=== PATIENT | female | born 1945 | race American Indian/Alaskan Native ===

== ENCOUNTER 2016-07-08 13:31 | Observation (INO) | payer OTHER ==
[2016-07-08 13:36] VITALS: BMI 47.2
[2016-07-08] MEDS ORDERED: ASPIRIN 81 MG CHEWABLE TABLETS PO ONE (13:42)
--- NOTE | 2016-07-08 13:42 | PDOC ---
History of Present Illness - General History Source: Patient Exam Limitations: No Limitations <Lila Oscar - Last Filed: 07/08/16 16:46> - General History Source: Patient Exam Limitations: No Limitations <Sinai Krause - Last Filed: 07/09/16 21:37> - General Chief Complaint: Chest Pain Stated Complaint: CHEST PAIN Time Seen by Provider: 07/08/16 13:41 - History of Present Illness Initial Comments: 07/08/16 13:41 The patient is a 71-year-old woman, accompanied by her family, with a significant past medical history of hypertension, hypercholesterolemia and non- insulin dependent diabetes mellitus who presents to the emergency department via walk-in for further evaluation of chest pain for the past 3-4 days. As per patient, she reports experiencing intermittent mid-sternal nonradiating chest tightness with associated shortness of breath. She notes that physical activity with exertion, such as walking up the steps around her house, exacerbates her chest pain. She reports taking her inhaler to help alleviate her shortness of breath but states that this made it worse. Patient admits that her symptoms worsen yesterday as her chest pain began to be more constant. Today, her pain was more severe despite taking Tylenol, thus she presented to the ED. She denies fever, chills, cough, hemoptysis, diaphoresis, shortness of breath, headache. She denies jaw/ back pain lower extremity pain/swelling, calf tenderness/pain She denies recent travel, recent surgery, recent immobilization. Allergies: None Known Past Surgical History: Hysterectomy Social History: Never smoked. No EtOH and recreational drug use. Primary Care Physician: Dr. Vic Keen (Lila Oscar) Past History <Lila Oscar - Last Filed: 07/08/16 16:46> - Past Medical History Dialysis: Yes HTN: Yes Hypercholesterolemia: Yes - Psycho/Social/Smoking Cessation Hx Anxiety: No Suicidal Ideation: No Smoking History: Never smoked Have you smoked in the past 12 months: No Information on smoking cessation initiated: No Hx Alcohol Use: No Drug/Substance Use Hx: No Substance Use Type: None <Sinai Krause - Last Filed: 07/09/16 21:37> - Past Medical History Allergies/Adverse Reactions: Allergies Allergy/AdvReac Type Severity Reaction Status Date / Time No Known Allergies Allergy Verified 07/08/16 13:32 Home Medications: Ambulatory Orders Amlodipine Besylate 5 mg PO DAILY 07/08/16 Glipizide 5 mg PO DAILY 07/08/16 Insulin Glargine,Hum.rec.anlog [Lantus (nf)] 40 units SQ HS 07/08/16 Losartan/Hydrochlorothiazide [Losartan-Hctz 100-25 mg Tab] 1 each PO DAILY 07/08 Metformin HCl 500 mg PO DAILY 07/08/16 Simvastatin 40 mg PO HS 07/08/16 Review of Systems - Review of Systems Able to Perform ROS?: Yes <Lila Oscar - Last Filed: 07/08/16 16:46> <Sinai Krause - Last Filed: 07/09/16 21:37> - Review of Systems Comments:: 07/08/16 13:47 GENERAL/CONSTITUTIONAL: No: fever, chills, weakness, loss of appetite. HEAD, EYES, EARS, NOSE AND THROAT: No: change in vision, ear pain, discharge, sore throat, throat swelling. CARDIOVASCULAR: Yes: Chest Pain. No: lightheadedness, palpitations, syncope RESPIRATORY: Yes: Shortness of breath. No: cough, wheezing, hemoptysis, stridor. GASTROINTESTINAL: No: nausea, vomiting, abdominal cramping, diarrhea, rectal bleeding, constipation. GENITOURINARY: No: dysuria, hematuria, frequency, urgency, flank pain. MUSCULOSKELETAL: No: back pain, neck pain, joint pain, muscle swelling or pain SKIN AND BREASTS: No: lesions, pallor, rash or easy bruising. NEUROLOGIC: No: headache, vertigo, paresthesias, weakness ENDOCRINE: No: unexplained weight gain or loss HEMATOLOGIC/LYMPHATIC: No: anemia, easy bleeding, swelling nodes (Lila Oscar) *Physical Exam <Lila Oscar - Last Filed: 07/08/16 16:46> <Sinai Krause - Last Filed: 07/09/16 21:37> - Vital Signs Last Vital Signs Temp Pulse Resp BP Pulse Ox 98.1 F 90 20 146/80 100 07/09/16 08:00 07/09/16 12:00 07/09/16 12:00 07/09/16 12:00 07/09/16 12:00 - Physical Exam Comments: 07/08/16 13:47 GENERAL: Awake. Alert. The patient is in no acute distress. Appears anxious. HEAD: Normal with no signs of trauma. EYES: PERRLA, EOMI, sclera anicteric, conjunctiva clear. ENT: Ears normal, nares patent, oropharynx clear without exudates. Moist mucous membranes. NECK: Normal range of motion, supple without lymphadenopathy, JVD, or masses. LUNGS: Breath sounds equal, clear to auscultation bilaterally. No wheezes, and no crackles. HEART:Regular rate and rhythm, normal S1 and S2 without murmur, rub or gallop. ABDOMEN: Soft, nontender, normoactive bowel sounds. No guarding, no rebound. EXTREMITIES: Normal range of motion, no edema. No clubbing or cyanosis. No erythema, or tenderness. NEUROLOGICAL: Cranial nerves II through XII grossly intact. Normal speech. No focal neurological deficits. MUSCULOSKELETAL: Back non-tender to palpation, no CVA tenderness SKIN: Warm, Dry, normal turgor, no rashes or lesions noted. (Lila Oscar) Heart Score/ECG Review <Lila Oscar - Last Filed: 07/08/16 16:46> - History History: Moderately suspicious - Electrocardiogram EKG: Significant ST-depression - Age Age: >/= 65 - Risk Factors Risk Factors Heart Score: Yes Hx Hypercholesterolemia, Yes Hx Hypertension, Yes Hx Diabetes Based on the list above the patient has:: >/=3 risk factors or Hx atherosclerotic disease - Troponin Troponin: </= normal limit - Score Heart Score - Total: 7 #1 ECG reviewed & interpreted by me at: 16:24 <Sinai Krause - Last Filed: 07/09/16 21:37> #1 07/08/16 16:24 Twelve-lead EKG was performed and reviewed by me. There is normal sinus rhythm with a normal rate of 85 bpm. The axis is normal. The intervals are normal - pr :156ms, QRS:86ms, QTc:464ms. There are no ST depressions II, aVF. T wave inversion I, aVL (Sinai Krause) ED Treatment Course - LABORATORY CBC & Chemistry Diagram: 07/08/16 13:50 07/08/16 13:50 <Lila Oscar - Last Filed: 07/08/16 16:46> - LABORATORY CBC & Chemistry Diagram: 07/09/16 06:15 07/09/16 06:15 <JimiJordiSinai - Last Filed: 07/09/16 21:37> - ADDITIONAL ORDERS Additional order review: 07/08/16 13:50 RBC 4.92 MCV 75.5 L MCHC 34.1 RDW 14.3 MPV 7.5 Neutrophils % 52.8 Lymphocytes % 34.6 Monocytes % 6.3 Eosinophils % 4.8 H Basophils % 1.5 - RADIOLOGY Radiology Studies Ordered: Category Date Time Status CHEST CTA [CT] Stat CT Scan 07/08/16 14:49 Completed CHEST - PA [RAD] Stat Radiology 07/08/16 13:42 Completed Radiograph Interpretation: 07/08/16 15:41 EXAM: RAD/CHEST - PA Chest Interpreted by Dr. Jacobo Sherwood IMPRESSION: Chest pain Since the prior study of 02/19/2010 there is a slightly weaker inspiration with a more prominent mediastinum and central crowding. An acute process is not seen. The bones and soft tissues are intact. (Lila Oscar) - Medications Given in the ED: ED Medications Discontinued Medications Generic Name Dose Route Start Last Admin Trade Name Freq PRN Reason Stop Dose Admin Amlodipine Besylate 5 mg 07/09/16 10:00 07/09/16 11:15 Norvasc - PO 5 mg DAILY [facility]NEY Administration Aspirin 162 mg 07/08/16 13:42 07/08/16 13:52 Asa - PO 07/08/16 13:43 162 mg ONCE ONE Administration Aspirin 81 mg 07/09/16 10:00 07/09/16 11:14 Asa - PO 81 mg DAILY COURTNEY Administration Atorvastatin Calcium 20 mg 07/08/16 22:00 07/08/16 22:20 Lipitor - PO 20 mg HS COURTNEY Administration Carvedilol 6.25 mg 07/09/16 10:00 07/09/16 11:14 Coreg - PO 6.25 mg BID COURTNEY Administration Famotidine/Sodium Chloride 50 mls @ 100 mls/hr 07/08/16 17:54 07/08/16 17:58 Pepcid 20 Mg Premixed Ivpb - IVPB 07/08/16 18:23 100 mls/hr ONCE ONE Administration Heparin Sodium (Porcine) 25, 500 mls @ 20 mls/hr 07/09/16 07:45 07/09/16 08:01 000 unit/ Sodium Chloride IV 20 mls/hr TITR COURTNEY Administration Protocol 1,000 UNIT/HR Insulin Aspart 1 vial 07/08/16 22:00 07/09/16 09:17 Novolog Vial Sliding Scale - SQ Not Given ACHS COURTNEY Protocol Insulin Detemir 40 units 07/08/16 22:00 07/08/16 22:20 Levemir Vial SQ 40 units HS [facility] Administration Losartan Potassium 100 mg 07/09/16 10:00 07/09/16 11:15 Cozaar - PO 100 mg DAILY COURTNEY Administration Ticagrelor 180 mg 07/09/16 10:00 07/09/16 10:00 Brilinta - PO 180 mg DAILY COURTNEY Administration Medical Decision Making <Lila Oscar - Last Filed: 07/08/16 16:46> <Sinai Krause - Last Filed: 07/09/16 21:37> - Medical Decision Making 07/08/16 16:12 EXAM: CT/CHEST CTA HISTORY PROVIDED Interpreted by Dr. George Isaac IMPRESSION: Sequential axial images were obtained from the thoracic inlet through the domes of the diaphragm following the administration of intravenous contrast material. CTA pulmonary embolism protocol was utilized, including coronal and oblique coronal MIP images. There is good opacification of the central pulmonary vasculature with no filling defects suspicious for pulmonary embolism. The lung renae are free of pulmonary masses, areas of acute consolidation or pleural effusions. The thyroid gland is enlarged with ill- defined nodularity and calcification, predominantly involving the left lobe. Sonographic follow-up is recommended. No mediastinal masses or fluid collections are identified. There are prominent lymph nodes within both axillae. No significant mediastinal adenopathy is noted. The heart is not enlarged. There is no evidence of thoracic aortic aneurysm or dissection. Evaluation of the upper abdomen demonstrates no acute abnormalities. (Lila Oscar) 07/08/16 13:41 A portion of this note was documented by scribe services under my direction. I have reviewed the details of the note, within reason, and agree with the documentation with the following case summary and management plan written by me. Nursing documentation reviewed and incorporated into medical decision making This patient is a 71-year-old female with a history of diabetes, hypertension, hyperlipidemia, insulin-dependent diabetes who presents emergency department with a complaint of chest tightness. Patient states her symptoms began 3-4 days ago, she has had chest tightness and difficulty breathing Her symptoms were initially intermittent, often associated with exertion. Her symptoms also were present at rest. She has had no fevers, no chills, no cough. No nausea, no vomiting Patient states she has had no prior cardiac workup (no stress or cath in the past) No heart attack in the past Differential includes cardiac ischemia, pe, asthma exacerbation, pneumonia, pneumothorax, pleural effusion, costochondritis, pericarditis, GERD. Will do labs including troponin (which will be trended) Will do EKG Will do CTA chest to rule out dissection rule out PE Will admit this patient today 07/08/16 14:49 Laboratory Tests 07/08/16 07/08/16 07/08/16 13:50 13:50 13:50 WBC 12.2 H Hgb 12.7 Hct 37.1 Plt Count 514 H INR 0.98 BUN 12 Creatinine 0.9 Creatine Kinase 58 Troponin I 0.04 B-Natriuretic Peptide 71.02 07/08/16 16:21 CTA chest: No evidence of PE, no evidence of dissection, no evidence of aneurysm While here, patient had 2 episodes of chest tightness and diaphoresis which self resolved Will: Continue to monitor Will trend troponins Case reviewed with Dr Tellez Will admit to tele Clinical impression: chest pain, ACS (Sinai Krause) *DC/Admit/Observation/Transfer <Lila Oscar - Last Filed: 07/08/16 16:46> - Discharge Dispostion Admit: Yes <Sinai Krause - Last Filed: 07/09/16 21:37> Diagnosis at time of Disposition: Chest tightness or pressure - Discharge Dispostion Disposition: TRANSFER ACUTE CARE/OTHER HOSP Condition at time of disposition: Fair Decision to Admit order Date/Time: 07/08/16 16:26 (Sinai Krause) - Referrals - Attestations Scribe Attestion: 07/08/16 13:47 Documentation prepared by Lila Oscar, acting as medical staff manager for Sinai Krause MD. (Lila Oscar)
[2016-07-08] MEDS ORDERED: ASPIRIN 81 MG CHEWABLE TABLETS ONE (13:52)
[2016-07-08 13:56] LABS: BASOPHIL 1.5 % (0-2.0); EOSINOPHIL 4.8 % (0-4.5); MCH 25.7 pg (25.7-33.7); MCHC 34.1 g/dl (32.0-36.0); MEAN CELL VOLUME 75.5 fl (80-96); MEAN PLT VOLUME 7.5 fl (7.5-11.1); NEUTROPHILS 52.8 % (42.8-82.8); PLATELET COUNT 514 K/MM3 (134-434); RDW 14.3 % (11.6-15.6); WHITE BLOOD COUNT 12.2 K/mm3 (4.0-10.0)
[2016-07-08 14:21] LABS: ALBUMIN 3.8 g/dl (3.4-5.0); ANION GAP 17 (8-16); BILIRUBIN,TOTAL 0.3 mg/dL (0.2-1.0); CALCIUM 9.7 mg/dL (8.5-10.1); CO2 22 mmol/L (21-32); COCKROFT - GAULT 70.7965; CREATININE 0.9 mg/dL (0.55-1.02); GLUCOSE,RANDOM 234 mg/dL (74-106); MAGNESIUM 1.9 mg/dL (1.8-2.4); SGOT/AST 17 U/L (15-37); SGPT/ALT 30 U/L (12-78); TOT PROT 7.7 g/dl (6.4-8.2)
[2016-07-08 14:24] LABS: ALK PHOS 95 U/L (45-117); TROPONIN I 0.04 ng/ml (0.00-0.05)
[2016-07-08 14:38] LABS: INR 0.98 (0.82-1.09); PROTHROMBIN TIME (PATIENT) 10.8 SEC (9.98-11.88)
[2016-07-08 15:05] LABS: URINE APPEARANCE CLEAR; URINE BILIRUBIN NEGATIVE (NEGATIVE); URINE BLOOD NEGATIVE (NEGATIVE); URINE COLOR STRAW; URINE GLUCOSE (UA) 1+ (NEGATIVE); URINE KETONE TRACE (NEGATIVE); URINE NITRITE NEGATIVE (NEGATIVE); URINE UROBILINOGEN NEGATIVE E.U./dl (0.2-1.0)
[2016-07-08 15:10] LABS: URINE LEUK ESTERASE TRACE (NEGATIVE); URINE PROTEIN 2+ (NEGATIVE)
[2016-07-08 15:14] LABS: URINE RBC <1 /hpf (0-3); URINE WBC 5 /hpf (3-5)
--- NOTE | 2016-07-08 17:41 | HP ---
Admitting History and Physical - Primary Care Physician PCP: Osmani Ho - Admission Chief Complaint: chest pressure and sob History of Present Illness: HPI This 71 year old female with HTN, HLD, DM II presented to the ED with worsening left sided chest pressure and associated shortness of breath. The patient states she these symptoms have been on going for 4 days and today they worsened. She has them when she gets up to go the bathroom and intermittently at rest. A few night ago the chest pressure kept her up at night. The pressure does not radiate anywhere its left sternal and she holds her chest when she describes it. She has not had an episodes similar to this in the past. She does not smoke or drink alcohol. Several years ago she was prescribed an inhaler for shortness of breath, but denies any history of asthma or copd. Currently, she is laying 30 HOB in ED without distress she is able to sit up and take deep breaths no cough or wheezing noted. She does endorse feeling short of breath when she goes up the stairs. No recent sick contacts, travel, although she is set to go to [place] on Friday. History Source: Patient, Family Member Limitations to Obtaining History: No Limitations - Past Medical History Cardiovascular: Yes: HTN, Hyperlipdemia Endocrine: Yes: Diabetes Mellitus - Past Surgical History Past Surgical History: Yes: Hysterectomy (Here at [facility] many years ago ?1998 ) - Smoking History Smoking history: Never smoked Have you smoked in the past 12 months: No - Alcohol/Substance Use Hx Alcohol Use: No History of Substance Use: reports: None - Social History Usual Living Arrangement: Yes: With Spouse ADL: Independent Occupation: Retired RN at [employer] History of Recent Travel: No Home Medications - Allergies Allergies/Adverse Reactions: Allergies Allergy/AdvReac Type Severity Reaction Status Date / Time No Known Allergies Allergy Verified 07/08/16 13:32 - Home Medications Home Medications: Ambulatory Orders Amlodipine Besylate 5 mg PO DAILY 07/08/16 Glipizide 5 mg PO DAILY 07/08/16 Insulin Glargine,Hum.rec.anlog [Lantus (nf)] 40 units SQ HS 07/08/16 Losartan/Hydrochlorothiazide [Losartan-Hctz 100-25 mg Tab] 1 each PO DAILY 07/08 Metformin HCl 500 mg PO DAILY 07/08/16 Simvastatin 40 mg PO HS 07/08/16 Review of Systems - Review of Systems Constitutional: reports: No Symptoms Eyes: reports: No Symptoms HENT: reports: No Symptoms Neck: reports: No Symptoms Cardiovascular: reports: Chest Pain (pressure), Shortness of Breath Respiratory: reports: SOB, SOB on Exertion Gastrointestinal: reports: No Symptoms Genitourinary: reports: No Symptoms Musculoskeletal: reports: No Symptoms Integumentary: reports: No Symptoms Neurological: reports: No Symptoms Endocrine: reports: No Symptoms Hematology/Lymphatic: reports: No Symptoms Psychiatric: reports: No Symptoms Physical Examination Vital Signs: Vital Signs Temperature 98.0 F 07/08/16 13:33 Pulse Rate 80 07/08/16 14:41 Respiratory Rate 24 07/08/16 14:41 Blood Pressure 161/77 07/08/16 14:41 O2 Sat by Pulse Oximetry (%) 100 07/08/16 14:41 Constitutional: Yes: Calm Eyes: Yes: Conjunctiva Clear HENT: Yes: Atraumatic Neck: Yes: Supple Cardiovascular: Yes: Regular Rate and Rhythm, S1, S2 Respiratory: Yes: CTA Bilaterally, On Nasal O2 Gastrointestinal: Yes: Normal Bowel Sounds, Soft, Other (protubrent abd) Renal/: Yes: WNL Musculoskeletal: Yes: WNL Extremities: Yes: WNL Edema: No Peripheral Pulses WNL: Yes Integumentary: Yes: WNL Neurological: Yes: Alert, Oriented, Cran Nerves II-XII Intact Psychiatric: Yes: Alert, Oriented Imaging - Results Chest X-ray: Report Reviewed, Image Reviewed Cat Scan: Report Reviewed (Mulitnodular goiter, prominent lymph nodes b/l axillae, no PE) EKG: Report Reviewed Problem List - Problems (1) Chest tightness or pressure Code(s): R07.89 - OTHER CHEST PAIN (2) Shortness of breath Code(s): R06.02 - SHORTNESS OF BREATH (3) HTN (hypertension) Code(s): I10 - ESSENTIAL (PRIMARY) HYPERTENSION (4) HLD (hyperlipidemia) Code(s): E78.5 - HYPERLIPIDEMIA, UNSPECIFIED (5) Diabetes mellitus Code(s): E11.9 - TYPE 2 DIABETES MELLITUS WITHOUT COMPLICATIONS Assessment/Plan Assessment: 71 year old female with HTN, HLD, DM II admitted with chest pressure and shortness of breath x4 days. Plan: 1. Chest Pressure/ r/o ACS - R/o SD, Asthma exacerbation vs GERD, vs costocondritis, angina pectoris - CTA negative for PE - CXR negative for acute infectious process - Obtain serial cardiac enzymes x3, initial trop negative - ECHO - EKG in AM - Telemetry monitoring - Possible increase norvasc as anti anginal, ranexa - Start ASA 81mg - Cardiology consult given risk factors, consider stress test 2. HTN - Norvasc 5mg daily - Losartan 100mg daily - HCTZ 25mg daily 3. HLD - Continue home meds 4. DM II - ISS, BGM ACHS - Levemir 40 units HS 5. Mulitnodular goiter - TSH wnl - No acute issues with swallowing or BP, can f/u endocrine as outpt 6. Prominent lymph nodes - Consider us v biopsy 7. Proteinuria - Likely from HTN and DM - Renal work up as outpt, cr stable - Repeat UA on discharge Visit type - Emergency Visit Emergency Visit: Yes ED Registration Date: 07/08/16 Care time: The patient presented to the Emergency Department on the above date and was hospitalized for further evaluation of their emergent condition. - New Patient This patient is new to me today: Yes Date on this admission: 07/09/16 - Critical Care Critical Care patient: No
[2016-07-08] MEDS ORDERED: FAMOTIDINE 20 MG/50 ML IVPB 50 ML IVPB ONE ×2 (17:54→17:58)
[2016-07-08] MEDS ORDERED: morphine CARPU-JECT 2 MG/1 ML DISP.SYRIN IVPUSH PRN (17:59)
[2016-07-08] MEDS ORDERED: INSULIN DETEMIR 100 UNITS/ML MDV SQ SCH (22:00)
[2016-07-08] MEDS ORDERED: ATORVASTATIN CA 20 MG TABLET (FP) PO SCH (22:00)
[2016-07-08] MEDS ORDERED: ATORVASTATIN CA 40 MG TABLET (FP) ONE (22:11)
[2016-07-08] MEDS ORDERED: INSULIN (NOVOLOG) ASPART 100 UNITS/ML 10ML VIAL ONE (22:12)
[2016-07-08] MEDS ORDERED: INSULIN DETEMIR 100 UNITS/ML MDV SQ ONE (22:12)
[2016-07-08] MEDS: INSULIN SLIDING SCALE (NOVOLOG) 1 VIAL SQ SCH (22:20)
[2016-07-08 22:42] LABS: TROPONIN I 0.56 ng/ml (0.00-0.05)
[2016-07-09 06:56] VITALS: TEMP 98.1
[2016-07-09 07:13] LABS: BASOPHIL 1.2 % (0-2.0); EOSINOPHIL 7.5 % (0-4.5); MCHC 34.4 g/dl (32.0-36.0); MEAN CELL VOLUME 75.7 fl (80-96); MEAN PLT VOLUME 7.5 fl (7.5-11.1); PLATELET COUNT 426 K/MM3 (134-434); RDW 14.4 % (11.6-15.6); WHITE BLOOD COUNT 11.3 K/mm3 (4.0-10.0)
[2016-07-09] MEDS ORDERED: HEPARIN NA (PORCINE) 5,000 UNITS/ML 1ML VIAL IVPUSH PRN (07:43)
[2016-07-09] MEDS ORDERED: HEPARIN NA (PORCINE) 5,000 UNITS/ML 1ML VIAL ONE (07:44)
[2016-07-09] MEDS ORDERED: HEPARIN INFUSION - 500 ML IVPB ONE (07:44)
[2016-07-09] MEDS ORDERED: TICAGRELOR 90 MG TABLET PO ONE (07:45)
[2016-07-09] MEDS ORDERED: HEPARIN - 25,000 UNIT in SODIUM CHLORIDE 495 ML IV SCH (07:45)
[2016-07-09 07:46] LABS: ALBUMIN 3.5 g/dl (3.4-5.0); ANION GAP 10 (8-16); BILIRUBIN,TOTAL 0.6 mg/dL (0.2-1.0); CALCIUM 9.7 mg/dL (8.5-10.1); CO2 29 mmol/L (21-32); CREATININE 0.7 mg/dL (0.55-1.02); GLUCOSE,RANDOM 87 mg/dL (74-106); MAGNESIUM 2.1 mg/dL (1.8-2.4); SGOT/AST 18 U/L (15-37); SGPT/ALT 28 U/L (12-78); TOT PROT 7.1 g/dl (6.4-8.2)
[2016-07-09 07:47] LABS: ALK PHOS 80 U/L (45-117)
[2016-07-09 08:00] LABS: TROPONIN I 0.49 ng/ml (0.00-0.05)
--- NOTE | 2016-07-09 08:01 | PN ---
Progress Note (short form) - Note Progress Note: Chief Complaint: Events noted, notes reviewed, recurrent chest pain and progressive exertional dyspnea History of Present Illness: Seen and examined and examined ER as telemetry hold. Full consult dictated - Current Medication List Current Medications Amlodipine Besylate (Norvasc -) 5 mg PO DAILY [facility] Aspirin (Asa -) 81 mg PO DAILY [facility] Atorvastatin Calcium (Lipitor -) 20 mg PO HS [facility] Last Admin: 07/08/16 22:20 Dose: 20 mg Enoxaparin Sodium (Lovenox -) 40 mg SQ DAILY [facility] Hydrochlorothiazide (Hctz -) 25 mg PO DAILY [facility] Insulin Aspart (Novolog Vial Sliding Scale -) 1 vial SQ ACHS COURTNEY PRN Reason: Protocol Last Admin: 07/08/16 22:20 Dose: 2 units Insulin Detemir (Levemir Vial) 40 units SQ HS [facility] Last Admin: 07/08/16 22:20 Dose: 40 units Losartan Potassium (Cozaar -) 100 mg PO DAILY [facility] Morphine Sulfate (Morphine Injection -) 1 mg IVPUSH Q4H PRN PRN Reason: PAIN Review of Systems Cardiovascular: As noted above Respiratory: denies: denies: Cough or Sputum Production Gastrointestinal: denies: Nausea, Vomiting, Diarrhea, Constipation or Abdominal Discomfort Musculoskeletal: No Symptoms Reported Endocrine: No Symptoms Reported - Objective Vital Signs: Last Vital Signs Temp Pulse Resp BP Pulse Ox 98.1 F 77 19 138/72 98 07/09/16 06:00 07/09/16 06:00 07/09/16 06:00 07/09/16 06:00 07/09/16 06:00 Neck: Supple Negative JVD No Bruit Cardiovascular: S1 S2 Regular Rate and Rhythm No Murmurs Clicks or Gallops Respiratory: Clear to A&P Bilaterally Gastrointestinal: Soft Benign Normal Bowel Sounds Ext: Negative Edema Labs: Troponin, BNP 07/08/16 07/08/16 13:50 21:48 Troponin I 0.04 0.56 H B-Natriuretic Peptide 71.02 CBC, BMP 07/09/16 06:15 Hepatic Panel Total Bilirubin 0.3 mg/dL (0.2-1.0) 07/08/16 13:50 AST 17 U/L (15-37) 07/08/16 13:50 ALT 30 U/L (12-78) 07/08/16 13:50 Alkaline Phosphatase 95 U/L (45-117) 07/08/16 13:50 Albumin 3.8 g/dl (3.4-5.0) 07/08/16 13:50 Assessment/Plan ASSESSMENT: 1. Clinical presentation consistent with CAD unstable angina pectoris NSTEMI/ASC 2. Probable diastolic LV dysfunction with class 0 NYHA classification LV failure 3. HTN 4. IDDM 5. Hypercholesterolemia PLAN: 1. Add B-Blockers, Coreg 2. Continue Cozaar 3. Continue Norvasc 4. Hold HCTZ 5. High dose statins, Lipitor 6. Initiate Brilinta, loading and initiate Heparin, continue ASA 7. Recommend early [facility] coronary angiography considering her presentation with the above noted NSTEMI/ACS Discussed in detail with the patient Kallie Grigsby MD
[2016-07-09] MEDS ORDERED: ATORVASTATIN CA 80 MG TABLET (FP) PO SCH (08:05)
[2016-07-09] MEDS: INSULIN SLIDING SCALE (NOVOLOG) 1 VIAL SQ SCH (09:17)
--- NOTE | 2016-07-09 09:27 | CONS ---
DATE OF CONSULTATION: 05/09/2016 REQUESTING PHYSICIAN: Hospitalist CHIEF COMPLAINT: Chest pain, dyspnea, cardiovascular evaluation. HISTORY OF PRESENT ILLNESS: This 71-year-old female of [place] descent , with known history of hypertensive cardiovascular disease, insulin-dependent diabetes mellitus, hypercholesterolemia , who denied tobacco abuse or family history of premature cardiovascular disease, presented to [facility] Emergency Room with progressive retrosternal chest discomfort and progressive dyspnea. Patient has been reporting retrosternal chest discomfort described as heaviness, which was predominantly noted with minimal physical exertion and subsequently was noted at rest. Symptoms subsided spontaneously within a few minutes. Patient in addition reported dyspnea with the above-noted presentation and in addition dyspnea with physical exertion. Patient denied any associated diaphoresis. On day of hospitalization, symptoms worsened. Patient denied any history of orthopnea, paroxysmal nocturnal dyspnea, or peripheral edema. Patient denied any palpitation, dizziness, lightheadedness, or syncope. Patient reported progressive fatigue and tiredness. Upon evaluation in the emergency room, patient was noted to have an abnormal electrocardiogram. PAST MEDICAL HISTORY: Hypertensive cardiovascular disease, insulin-dependent diabetes mellitus, hypercholesterolemia. PAST SURGICAL HISTORY: Hysterectomy. SOCIAL HISTORY: A retired registered nurse. She denies tobacco abuse, alcohol intake. FAMILY HISTORY: No family history of premature coronary artery disease. ALLERGIES: None reported. MEDICAL THERAPY AT HOME: Included insulin, Onglyza, glipizide, metformin, Hyzaar, Norvasc, and simvastatin. REVIEW OF SYSTEMS: Head and neck: Denies headache, photophobia, blurring of vision. Respiratory: No cough or sputum production. Cardiovascular: As noted above. Gastrointestinal: No nausea, vomiting, diarrhea, abdominal discomfort. Genitourinary: No symptoms reported. Musculoskeletal: No symptoms reported. PHYSICAL EXAMINATION: Vital signs: Blood pressure is 138/72 mmHg, pulse rate is 77 beats per minute, temperature 98.1. Head and neck: Pupils are equally reactive to light and accommodation. Extraocular muscles are intact. Anicteric sclerae. Negative JVD. No bruit appreciated. Chest: Clear to auscultation and percussion. Cardiovascular: S1, S2 regular. No murmur, clicks or gallops. Abdomen: Soft, benign. Normoactive bowel sounds. Extremities: Negative edema. Intact distal pulses. No calf tenderness. STUDIES: Electrocardiogram reveals sinus rhythm with ST-segment depression in leads 2, 3, AVF, V5, V6. CBC revealed white cell count 11.3, hemoglobin 12.1, platelet count 426. INR 0.98. Basic metabolic profile revealed a sodium 141, potassium 3.8, BUN 12, creatinine 0.7, glucose 87. Troponin I initially 0.04, repeat 0.56. TSH 1.33. Chest CTA was performed, no evidence of pulmonary embolism. ASSESSMENT: 1. Clinical presentation consistent with coronary artery disease, unstable angina pectoris, [id number]-elevation myocardial infarction/acute coronary syndrome. 2. Probable diastolic left ventricular dysfunction with Class 0 [place] Heart Association Classification left ventricular failure. 3. Hypertensive cardiovascular disease. 4. Insulin-dependent diabetes mellitus. 5. Hypercholesterolemia. RECOMMENDATION: 1. Addition of beta-leah, carvedilol. 2. Continuation of Cozaar. 3. Continuation of Norvasc. 4. Hydrochlorothiazide therapy to be withheld in preparation for coronary angiography. 5. High dose statins, Lipitor 80 mg once daily. 6. Initiation of Brilinta loading at 180 mg and then subsequently 90 mg twice daily, and in addition initiation of heparin intravenous drip and continuation of daily Ecotrin therapy at 81 mg. 7. Would recommend early left heart cardiac catheterization, coronary angiography considering the above noted presentation with [id number]-elevation infarct/ acute coronary syndrome. Risks, benefits, and alternatives were reviewed in detail with the patient, and patient is to be transferred. Thank you for the kind referral. SONIA HUTCHINSON M.D. [id number]
[2016-07-09] MEDS ORDERED: LOSARTAN POTASSIUM 50 MG TABLET (FP) PO SCH (10:00)
[2016-07-09] MEDS ORDERED: TICAGRELOR 90 MG TABLET PO SCH (10:00)
[2016-07-09] MEDS ORDERED: ENOXAPARIN NA (PORCINE) 40 MG/0.4 ML DISP.SYRIN SQ SCH (10:00)
[2016-07-09] MEDS ORDERED: ASPIRIN 81 MG CHEWABLE TABLETS PO SCH (10:00)
[2016-07-09] MEDS ORDERED: PATIENT'S OWN MEDICATION (NON-FORMULARY) (Losartan/Hydrochlorothiazide [Losartan-Hctz 100- PO SCH (10:00)
[2016-07-09] MEDS ORDERED: HYDROCHLOROTHIAZIDE 25 MG TABLET (FP) PO SCH (10:00)
[2016-07-09] MEDS ORDERED: amLODIPine BESYLATE 5 MG TABLET (FP) PO SCH (10:00)
[2016-07-09] MEDS ORDERED: CARVEDILOL 6.25 MG TABLET (FP) PO SCH (10:00)
--- NOTE | 2016-07-09 11:02 | DS ---
Physical Exam: SUBJECTIVE: Patient seen and examined. She is increasing symptomatic with exertion. Chest pressure intermittent. She agrees to cardiac cath. OBJECTIVE: Vital Signs Period Temp Pulse Resp BP Sys/Maki Pulse Ox Last 24 Hr 97.7 F-98.1 F 64-89 18-20 138-161/63-81 98-100 PE Neuro: alert, awake, cn 2-12intact Pulm: CTAB CV: s1 s2 rrr no mrg, + chest pressure Abd: s nd nt + bs Ext: warm, no le edema Laboratory Results - last 24 hr 07/08/16 07/08/16 07/08/16 16:39 21:48 22:00 WBC RBC Hgb Hct MCV MCHC RDW Plt Count MPV Neutrophils % Lymphocytes % Monocytes % Eosinophils % Basophils % Sodium Potassium Chloride Carbon Dioxide Anion Gap BUN Creatinine Creat Clearance w eGFR POC Glucometer [phone] Random Glucose Calcium Magnesium Total Bilirubin AST ALT Alkaline Phosphatase Creatine Kinase 76 Troponin I 0.56 H Total Protein Albumin TSH 1.33 07/09/16 07/09/16 07/09/16 06:15 06:15 06:15 WBC 11.3 H RBC 4.67 Hgb 12.1 Hct 35.3 MCV 75.7 L MCHC 34.4 RDW 14.4 Plt Count 426 MPV 7.5 Neutrophils % 63.0 Lymphocytes % 21.5 D Monocytes % 6.8 Eosinophils % 7.5 H Basophils % 1.2 Sodium 141 Potassium 3.8 Chloride 102 Carbon Dioxide 29 D Anion Gap 10 BUN 12 Creatinine 0.7 D Creat Clearance w eGFR > 60 POC Glucometer Random Glucose 87 D Calcium 9.7 Magnesium 2.1 Total Bilirubin 0.6 D AST 18 ALT 28 Alkaline Phosphatase 80 Creatine Kinase 58 Troponin I 0.49 H Total Protein 7.1 Albumin 3.5 TSH HOSPITAL COURSE: Date of Admission:07/08/16 Date of Discharge: 07/09/16 Minutes to complete discharge: 35 Discharge Summary Reason For Visit: SENSATION OF CHEST TIGHTNESS Current Active Problems Chest tightness or pressure (Acute) Diabetes mellitus (Acute) HLD (hyperlipidemia) (Acute) HTN (hypertension) (Acute) Shortness of breath (Acute) Hospital Course: Initial Hospital Course: Briefly, this 71 year old female with HTN, HLD, DM II presented to the ED with worsening left sided chest pressure and associated shortness of breath. The patient stated she these symptoms have been on going for 4 days and 07/08 it worsened. Symptoms increase when she goes to the bathroom and intermittently at rest. A few nights ago the chest pressure kept her up at night. The pressure does not radiate anywhere its left sternal and she holds her chest when she described it. She has not had an episodes similar to this in the past. She does not smoke or drink alcohol. Several years ago she was prescribed an inhaler for shortness of breath, but denies any history of asthma or copd. She does endorse feeling short of breath when she goes up the stairs. Subsequent Hospital Course/Progress Note/Transfer Summary by a/p: 1. Clinical presentation consistent with CAD unstable angina pectoris NSTEMI/ASC - Serial troponis increased as above. Pt symptoms worsened overnight especially exertional dyspnea. - Heparin bolus given, heparin gtt started - Started on brilinta - Started on coreg 6.25mg BID - Increase lipitor 80mg - Continue ASA - Continue norvasc 5mg daily - Continue losartan 100mg daily - Will go for [facility] today at [place] - d/w cardiology and pt, she agrees 2. HTN meds as above 3. DM - ISS - levemir 40unit hs 4. Mulitnodular goiter - TSH wnl - No acute issues with swallowing or BP, can f/u endocrine as outpt 5. Prominent lymph nodes - Consider us v biopsy 6. Proteinuria - Likely from HTN and DM - Renal work up as outpt, cr stable - Repeat UA on discharge Dispo: - Transfer for cardiac cath Condition: Fair - Instructions Diet, Activity, Other Instructions: Transfer for cardiac cath @ [facility] Referrals: Jacinto Astorga MD [Primary Care Provider] - Kallie Grigsby MD [Staff Physician] - Disposition: TRANSFER ACUTE CARE/OTHER HOSP - Home Medications Comprehensive Discharge Medication List: Ambulatory Orders Amlodipine Besylate 5 mg PO DAILY 07/08/16 Glipizide 5 mg PO DAILY 07/08/16 Insulin Glargine,Hum.rec.anlog [Lantus (nf)] 40 units SQ HS 07/08/16 Losartan/Hydrochlorothiazide [Losartan-Hctz 100-25 mg Tab] 1 each PO DAILY 07/08 Metformin HCl 500 mg PO DAILY 05/29/17 Simvastatin 40 mg PO HS 07/08/16 Problem List - Problems (1) Chest tightness or pressure Code(s): R07.89 - OTHER CHEST PAIN (2) Shortness of breath Code(s): R06.02 - SHORTNESS OF BREATH (3) HTN (hypertension) Code(s): I10 - ESSENTIAL (PRIMARY) HYPERTENSION (4) HLD (hyperlipidemia) Code(s): E78.5 - HYPERLIPIDEMIA, UNSPECIFIED (5) Diabetes mellitus Code(s): E11.9 - TYPE 2 DIABETES MELLITUS WITHOUT COMPLICATIONS This patient is new to me today: No Emergency Visit: Yes ED Registration Date: 07/08/16 Care time: The patient presented to the Emergency Department on the above date and was hospitalized for further evaluation of their emergent condition. Critical Care patient: No - Discharge Referral Referred to [facility] Med [facility] No
[2016-07-09] MEDS ORDERED: ASPIRIN 81 MG CHEWABLE TABLETS ONE (11:18)
[2016-07-09] MEDS ORDERED: amLODIPine BESYLATE 5 MG TABLET (FP) ONE (11:19)
[2016-07-09] MEDS ORDERED: LOSARTAN POTASSIUM 25 MG TABLET ONE (11:19)
[2016-07-09] MEDS ORDERED: CARVEDILOL 3.125 MG TABLET (FP) ONE (11:19)
[2016-07-09 13:22] LABS: TROPONIN I 0.34 ng/ml (0.00-0.05)
[2016-07-09 13:39] LABS: CHOLESTEROL 158 mg/dL (50-200)
[2016-07-09 13:46] VITALS: BP 146/80; PULSE 90
--- NOTE | 2016-07-09 13:58 | EKG ---
Test Reason : Blood Pressure : / mmHG Vent. Rate : 085 BPM Atrial Rate : 085 BPM P-R Int : 156 ms QRS Dur : 086 ms QT Int : 390 ms P-R-T Axes : 039 043 084 degrees QTc Int : 464 ms NORMAL SINUS RHYTHM NONSPECIFIC ST AND T WAVE ABNORMALITY ABNORMAL ECG NO PREVIOUS ECGS AVAILABLE Confirmed by VÍCTOR JEFFERS MD ([id number]) on 07/09/2016 1:58:08 PM Referred By: Confirmed By:VÍCTOR JEFFERS MD
[2016-07-09 14:29] LABS: LDL CHOLESTEROL (ONLY SJRH) 93 mg/dL (5-100)
--- NOTE | 2016-07-15 11:44 | PN ---
Progress Note (short form) - Note Progress Note: Patient underwent C 07/09 for CAD NSTEMI demonstrating 90-95% distal RCA s/p implant 3.5x16 mm MAXINE Synergy at 14 [address] with Guideliner assistance, 80-90% LCx- OM1 (medium size vessel) left alone, consider staged PCI if clinically warranted , LV fxn normal with LVEDP 20 mmHg, Angioseal deplyed right [employer] access site, no complications, d/krystal next day with f/u in office.
== END 2016-07-09 13:35 | disposition short-term general hospital (02) ==
LOC: JER 13:31 → JERBED 16:26
PROVIDERS: ADMIT Internal Medicine; ATTEND Nurse Practitioner Acute Care
PROC: 3E033GC Introduction of Other Therapeutic Substance into Peripheral Vein, Percutaneous Approach (ICD-10-PCS; principal; 2016-07-08)
PROC: 3E033GC Introduction of Other Therapeutic Substance into Peripheral Vein, Percutaneous Approach (ICD-10-PCS; 2016-07-08)
PROC: 3E013VG Introduction of Insulin into Subcutaneous Tissue, Percutaneous Approach (ICD-10-PCS; 2016-07-08)
DX: I25.119 Atherosclerotic heart disease of native coronary artery with unspecified angina pectoris (principal); R07.89 Other chest pain; R06.02 Shortness of breath; I10 Essential (primary) hypertension; E78.5 Hyperlipidemia, unspecified; E11.9 Type 2 diabetes mellitus without complications; E04.2 Nontoxic multinodular goiter; R80.9 Proteinuria, unspecified; Z79.4 Long term (current) use of insulin; Z79.84 Long term (current) use of oral hypoglycemic drugs; Z90.710 Acquired absence of both cervix and uterus; Z79.82 Long term (current) use of aspirin
CPT/HCPCS: 36415; 71010-TC; 71275-TC; 80053; 80061; 81003; 81015; 82550; 83721; 83735; 83880; 84443; 84484; 85025; 85610; 93005; 93010; 93306-TC; 99285-25; G0378; J1644

== ENCOUNTER 2016-11-19 15:06 | Emergency (ER) | payer OTHER ==
[2016-11-19 15:26] VITALS: BMI 28.8
--- NOTE | 2016-11-19 16:12 | PDOC ---
*Physical Exam - Vital Signs Last Vital Signs Temp Pulse Resp BP Pulse Ox 98.4 F 87 20 151/77 99 11/19/16 15:23 11/19/16 15:23 11/19/16 15:23 11/19/16 15:23 11/19/16 15:23 ED Treatment Course - LABORATORY CBC & Chemistry Diagram: 11/19/16 17:00 11/19/16 17:00 Medical Decision Making - Medical Decision Making 11/20/16 10:58 Pt seen by the Advanced Practice Provider under my direct supervision Ancillary studies reviewed I agree with plan as outlined by the Advanced Practice Provider *DC/Admit/Observation/Transfer Diagnosis at time of Disposition: UTI (urinary tract infection) - Discharge Dispostion Disposition: HOME Condition at time of disposition: Good - Prescriptions Prescriptions: Phenazopyridine HCl [Pyridium] 200 mg PO TID #12 tablet - Referrals Referrals: Osmani Ho MD [Primary Care Provider] - - Patient Instructions Printed Discharge Instructions: DI for Urinary Tract Infection (UTI) Additional Instructions: At this time I do want to to stop antibiotics as previously prescribed from Dr. Ho until you speak with him tomorrow to review your culture and sensitivity report. I do want to take Pyridium as prescribed to decrease your discomfort.
[2016-11-19] MEDS ORDERED: KETOROLAC TROMETHAMINE 30 MG/1 ML VIAL IVPUSH ONE (16:45)
[2016-11-19] MEDS ORDERED: KETOROLAC TROMETHAMINE 30 MG/1 ML VIAL ONE (16:52)
--- NOTE | 2016-11-19 16:58 | PDOC ---
History of Present Illness - General Chief Complaint: Pain, Acute Stated Complaint: R/O UTI Time Seen by Provider: 11/19/16 15:56 History Source: Patient Exam Limitations: No Limitations - History of Present Illness Travel History: No Initial Comments: 11/19/16 16:58 71-year-old female presents the emergency room with complaints of continuous dysuria along with suprapubic pressure and burning upon urination to the vaginal opening. As the patient's symptoms began on Friday and was placed on Levaquin on Friday by Dr. Ho and when she called him today in regards to continual symptoms he states the urine culture has not resulted as of yet. Patient denies fever, chills, nausea, abdominal distention, weakness, vaginal discharge. Patient states history of hysterectomy and denies history of complicated cystitis or history of renal colic. Timing/Duration: reports: constant Quality: reports: mild, burning, cramping Abdominal Pain Onset Location: reports: suprapubic Pain Radiation: reports: no radiation. denies: flank, back Activities at Onset: reports: none Aggravating Factors: improves with: Voiding Alleviating Factors: worse with: None Past History - Travel Traveled outside of the country in the last 30 days: No Close contact w/someone who was outside of country & ill: No - Past Medical History Allergies/Adverse Reactions: Allergies Allergy/AdvReac Type Severity Reaction Status Date / Time No Known Allergies Allergy Verified 11/19/16 15:22 Home Medications: Ambulatory Orders Amlodipine Besylate 10 mg PO DAILY 07/08/16 Glipizide 5 mg PO DAILY 07/08/16 Metformin HCl 500 mg PO DAILY 07/08/16 Aspirin [ASA -] 81 mg PO DAILY 11/19/16 Atorvastatin Calcium [Lipitor] 10 mg PO HS 11/19/16 Empagliflozin [Jardiance] 25 mg PO DAILY 11/19/16 Losartan Potassium 100 mg PO DAILY 11/19/16 Pantoprazole Sodium 40 mg PO DAILY 11/19/16 Saxagliptin HCl [Onglyza] 5 mg PO DAILY 11/19/16 Ticagrelor [Brilinta] 90 mg PO DAILY 11/19/16 Diabetes: Yes HTN: Yes Hypercholesterolemia: Yes - Suicide/Smoking/Psychosocial Hx Smoking History: Never smoked Have you smoked in the past 12 months: No Hx Alcohol Use: No Drug/Substance Use Hx: No Substance Use Type: None Patient Lives Alone: No Lives with/in: spouse/SO Review of Systems - Review of Systems Able to Perform ROS?: Yes Constitutional: No: Symptoms Reported HEENTM: No: Symptoms Reported Respiratory: No: Symptoms reported Cardiac (ROS): No: Symptoms Reported ABD/GI: Yes: Abdominal cramping : Yes: Burning, Dysuria, Frequency. No: Flank Pain, Hematuria, Urgency Integumentary: No: Symptoms Reported Neurological: No: Symptoms reported Hematologic/Lymphatic: No: Symptoms Reported *Physical Exam - Vital Signs Last Vital Signs Temp Pulse Resp BP Pulse Ox 98.4 F 87 20 151/77 99 11/19/16 15:23 11/19/16 15:23 11/19/16 15:23 11/19/16 15:23 11/19/16 15:23 - Physical Exam General Appearance: Yes: Nourished, Appropriately Dressed. No: Apparent Distress Gastrointestinal/Abdominal: positive: Normal Bowel Sounds, Soft, Tenderness ( midsuprapubic/ left suprapubic). negative: Distended Musculoskeletal: negative: CVA Tenderness Extremity: positive: Normal Capillary Refill. negative: Pedal Edema Integumentary: positive: Normal Color, Warm, Moist Neurologic: positive: Motor Strength 5/5 (ambulatory) ED Treatment Course - LABORATORY CBC & Chemistry Diagram: 11/19/16 17:00 11/19/16 17:00 Medical Decision Making - Medical Decision Making 11/19/16 17:06 Patient here with continual urinary complaints along with suprapubic cramping/ pressure. Patient on exam had no skin excoriation vaginal discharge or bleeding. Patient for CBC, comp, ultrasound, Toradol, urinalysis urine culture. Called [facility] and states the preliminary was sent yesterday with a sensitivity still pending and will not result until tomorrow. 11/19/16 18:44 Laboratory Tests 11/19/16 11/19/16 11/19/16 17:00 17:00 17:00 WBC 12.8 H Hgb 11.4 Hct 34.3 Plt Count 500 H Neutrophils % 69.5 Sodium 138 Potassium 4.2 Chloride 104 Carbon Dioxide 25 Anion Gap 9 BUN 13 Creatinine 0.8 Creat Clearance w eGFR > 60 Random Glucose 144 H D Lactic Acid AST 18 ALT 33 Alkaline Phosphatase 149 H D Albumin 3.2 L Urine Glucose (UA) 3+ H D Urine Ketones Negative Urine Blood 1+ H Urine Nitrite Negative Urine Urobilinogen Negative 11/19/16 17:00 WBC Hgb Hct Plt Count Neutrophils % Sodium Potassium Chloride Carbon Dioxide Anion Gap BUN Creatinine Creat Clearance w eGFR Random Glucose Lactic Acid 1.0 AST ALT Alkaline Phosphatase Albumin Urine Glucose (UA) Urine Ketones Urine Blood Urine Nitrite Urine Urobilinogen Case discussed with Dr. Ho who recommended giving the patient Pyridium as spoken to the patient and the plan is if ultrasound is negative patient will follow-up with Dr. Ho tomorrow in regards to the culture and sensitivity report from [facility] to begin antibiotics that are appropriate for her. 11/19/16 18:51 Ultrasound shows partial distention of the urinary bladder without wall thickening. Bilateral ureteral jets were not identified. No postvoid urine residual is present. Patient will be discharged home with Pyridium. *DC/Admit/Observation/Transfer Diagnosis at time of Disposition: Urinary tract infection Qualifiers: Hematuria presence: without hematuria - Discharge Dispostion Disposition: HOME Condition at time of disposition: Good - Referrals Referrals: Osmani Ho MD [Primary Care Provider] - - Patient Instructions Printed Discharge Instructions: DI for Urinary Tract Infection (UTI) Additional Instructions: At this time I do want to to stop antibiotics as previously prescribed from Dr. Ho until you speak with him tomorrow to review your culture and sensitivity report. I do want to take Pyridium as prescribed to decrease your discomfort.
[2016-11-19 17:35] LABS: URINE APPEARANCE SLCLOUDY; URINE BILIRUBIN NEGATIVE (NEGATIVE); URINE BLOOD 1+ (NEGATIVE); URINE COLOR STRAW; URINE GLUCOSE (UA) 3+ (NEGATIVE); URINE KETONE NEGATIVE (NEGATIVE); URINE NITRITE NEGATIVE (NEGATIVE); URINE PROTEIN NEGATIVE (NEGATIVE); URINE UROBILINOGEN NEGATIVE mg/dL (0.2-1.0)
[2016-11-19 17:56] LABS: ALBUMIN 3.2 g/dl (3.4-5.0); ANION GAP 9 (8-16); CALCIUM 9.5 mg/dL (8.5-10.1); CO2 25 mmol/L (21-32); CREATININE 0.8 mg/dL (0.55-1.02); GLUCOSE,RANDOM 144 mg/dL (74-106); SGOT/AST 18 U/L (15-37); SGPT/ALT 33 U/L (12-78)
[2016-11-19 17:58] LABS: ALK PHOS 149 U/L (45-117); BILIRUBIN,TOTAL 0.4 mg/dL (0.2-1.0); TOT PROT 7.1 g/dl (6.4-8.2)
[2016-11-19 18:01] LABS: BASOPHIL 0.9 % (0-2.0); EOSINOPHIL 6.3 % (0-4.5); MCH 24.6 pg (25.7-33.7); MCHC 33.2 g/dl (32.0-36.0); MEAN CELL VOLUME 74.3 fl (80-96); MEAN PLT VOLUME 7.7 fl (7.5-11.1); NEUTROPHILS 69.5 % (42.8-82.8); PLATELET COUNT 500 K/MM3 (134-434); RDW 15.9 % (11.6-15.6); WHITE BLOOD COUNT 12.8 K/mm3 (4.0-10.0)
[2016-11-19] MEDS ORDERED: CEFTRIAXONE 1 GM in DEXTROSE 5%-WATER - 50 ML IVPB ONE (18:16)
[2016-11-19] MEDS ORDERED: PHENAZOPYRIDINE HCL 100 MG TABLET (FP) PO ONE ×2 (18:18→18:59)
[2016-11-19] MEDS ORDERED: PHENAZOPYRIDINE HCL 100 MG TABLET (FP) ONE ×2 (18:39→19:03)
[2016-11-19] MEDS ORDERED: CEFTRIAXONE 50 ML ONE (18:40)
[2016-11-19 18:54] LABS: URINE BACTERIA RARE /hpf (NONE SEEN); URINE MUCUS RARE; URINE RBC 4 /hpf (0-3); URINE WBC 77 /hpf (3-5)
[2016-11-19 19:17] VITALS: BP 141/73; PULSE 73; TEMP 97.6
[2016-11-19 22:15] LABS: URINE LEUK ESTERASE TRACE (NEGATIVE)
== END 2016-11-19 19:17 | disposition home or self-care (01) ==
LOC: JER 15:06
PROC: 3E03329 Introduction of Other Anti-infective into Peripheral Vein, Percutaneous Approach (ICD-10-PCS; principal; 2016-11-19)
PROC: 3E0333Z Introduction of Anti-inflammatory into Peripheral Vein, Percutaneous Approach (ICD-10-PCS; 2016-11-19)
DX: I10 Essential (primary) hypertension (principal); E11.9 Type 2 diabetes mellitus without complications; E78.00 Pure hypercholesterolemia, unspecified; Z79.84 Long term (current) use of oral hypoglycemic drugs
CPT/HCPCS: 36415; 76856-TC; 80053; 81003; 81015; 83605; 85025; 87086; 99283-25

== ENCOUNTER 2020-08-21 04:59 | Day surgery (SDC) | payer OTHER ==
[2020-08-18 18:26] VITALS: BMI 28.0
[2020-08-21] MEDS ORDERED: LIDOCAINE 1%/EPI 1:100000 (20 ML MULTI DOSE VIAL) ONE (09:48)
[2020-08-21] MEDS ORDERED: BUPIVACAINE HCL/PF 0.5% (5MG/ML) 10 ML VIAL ONE (09:49)
[2020-08-21] MEDS ORDERED: ceFAZolin 2 GRAM PREMIX BAG IVPB ONE (09:56)
[2020-08-21] MEDS ORDERED: LIDOCAINE 1%/EPI 1:100000 (20 ML MULTI DOSE VIAL) IJ ONE (10:14)
[2020-08-21] MEDS ORDERED: BUPIVACAINE HCL/PF 0.5% (5MG/ML) 10 ML VIAL IJ ONE (10:14)
[2020-08-21] MEDS ORDERED: MIDAZOLAM HCL 2 MG/2 ML SINGLE DOSE VIAL ONE ×2 (10:20→11:57)
[2020-08-21] MEDS ORDERED: ONDANSETRON 4 MG/2 ML VIAL IVPUSH PRN (10:47)
[2020-08-21] MEDS ORDERED: oxyCODONE HCL 5 MG TABLET PO PRN ×2 (10:47)
[2020-08-21] MEDS ORDERED: LACTATED RINGERS SOLUTION 1,000 ML IV SCH (11:00)
[2020-08-21 13:07] VITALS: TEMP 97.6
[2020-08-21 13:52] VITALS: BP 124/60; PULSE 66
== END 2020-08-21 12:35 | disposition home or self-care (01) ==
LOC: JASU-SURG 04:59
PROVIDERS: ATTEND Podiatrist Foot Surgery
PROC: 0JBQ0ZZ Excision of Right Foot Subcutaneous Tissue and Fascia, Open Approach (ICD-10-PCS; principal; 2020-08-21 10:00)
DX: L72.3 Sebaceous cyst (principal); E11.9 Type 2 diabetes mellitus without complications; Z79.84 Long term (current) use of oral hypoglycemic drugs; I10 Essential (primary) hypertension
CPT/HCPCS: 82962; 88304-TC; 94760

== ENCOUNTER 2023-06-23 23:18 | Emergency (ER) | payer OTHER ==
[2023-06-23 23:23] VITALS: TEMP 97.6; BMI 27.4
[2023-06-24 00:28] LABS: BASO % 1.2 % (0-2.0); EOS % 7.7 % (0-4.5); HEMATOCRIT 37.5 % (32.4-45.2); LYMPH % 27.4 % (8-40); MCH 27.8 pg (25.7-33.7); MCHC 34.6 g/dl (32.0-36.0); MEAN CELL VOLUME 80.5 fl (80-96); MEAN PLT VOLUME 7.5 fl (7.5-11.1); MONO % 6.1 % (3.8-10.2); NEUT % 57.6 % (42.8-82.8); PLATELET COUNT 469 10^3/uL (134-434); RBC 4.66 M/mm3 (3.60-5.2); RDW 13.5 % (11.6-15.6); WHITE BLOOD COUNT 11.6 K/mm3 (4.0-10.0)
[2023-06-24 00:45] LABS: CALCIUM 10.1 mg/dL (8.5-10.1); POTASSIUM 3.7 mmol/L (3.5-5.1)
[2023-06-24 00:46] LABS: ALBUMIN 3.1 g/dl (3.4-5.0); BLOOD UREA NITROGEN 22.1 mg/dL (7-18); MAGNESIUM 1.7 mg/dL (1.8-2.4)
[2023-06-24 00:51] LABS: BILIRUBIN,TOTAL 0.4 mg/dL (0.2-1); TOT PROT 6.6 g/dl (6.4-8.2)
[2023-06-24 01:30] LABS: ACTIVATED PTT 39.2 SECONDS (25.2-36.5); INR 0.92 (0.83-1.09); PROTHROMBIN TIME (PATIENT) 10.4 SEC (9.7-13.0)
[2023-06-24] MEDS ORDERED: MAGNESIUM SULFATE IN WATER 2 GM/50 ML IVPB IVPB ONE (01:31)
[2023-06-24 01:32] LABS: EPI CELLS 6 /uL (0-25.1); HYALINE CASTS 1 /uL (0-3.1); PH,URINE 5.5 (5.0-8.0); URINE APPEARANCE CLEAR; URINE BACTERIA 6 /uL (0-1359); URINE BILIRUBIN NEGATIVE (NEGATIVE); URINE COLOR YELLOW; URINE GLUCOSE (UA) 1+ (NEGATIVE); URINE KETONE NEGATIVE (NEGATIVE); URINE LEUK ESTERASE NEGATIVE (NEGATIVE); URINE NITRITE NEGATIVE (NEGATIVE); URINE PROTEIN 3+ (NEGATIVE); URINE RBC 9 /uL (0-23.9); URINE UROBILINOGEN 0.2 mg/dL (0.2-1.0); URINE WBC 28 /uL (0-25.8)
[2023-06-24] MEDS: MAGNESIUM SULFATE IN WATER 2 GM/50 ML IVPB IVPB ONE (01:39)
[2023-06-24 01:49] VITALS: BP 143/73; PULSE 70; RESP 17
[2023-06-24] MEDS: LACTATED RINGERS SOLUTION 1000 ML INFUS.BAG IV ONE (02:26)
== END 2023-06-24 04:04 | disposition home or self-care (01) ==
LOC: JER 23:18
PROC: 3E033GC Introduction of Other Therapeutic Substance into Peripheral Vein, Percutaneous Approach (ICD-10-PCS; principal; 2023-06-24)
DX: I10 Essential (primary) hypertension (principal); R53.1 Weakness; Z20.822 Contact with and (suspected) exposure to COVID-19
CPT/HCPCS: 0241U-QW; 36415; 71046-TC-FY; 80053; 81003; 82962; 83735; 84484; 85025; 85610; 85730; 87086; 93005; 93010; 99285-25